=== PATIENT | male | born 1975 | race Caucasian/White ===

== ENCOUNTER 2017-03-20 11:58 | Emergency (ER) | payer SELFPAY | END 2017-03-20 18:11 | disposition left against medical advice (07) | LOC: UCEAST 11:58 | DX: T14.8 Other injury of unspecified body region (principal); X58.XXXA Exposure to other specified factors, initial encounter; Y93.9 Activity, unspecified; Y92.9 Unspecified place or not applicable; Y99.9 Unspecified external cause status; Z53.21 Procedure and treatment not carried out due to patient leaving prior to being seen by health care provider ==

== ENCOUNTER 2017-04-14 09:51 | Emergency (ER) | payer SELFPAY ==
[2017-04-14] MEDS ORDERED: HYDROcodone/ACETAMIN 5-325 MG* 1 TAB PO ONE (10:50)
[2017-04-14 11:23] VITALS: BP 141/79
== END 2017-04-14 11:24 | disposition short-term general hospital (02) ==
LOC: UCEAST 09:51
DX: M54.5 Low back pain (principal); R30.0 Dysuria; L98.9 Disorder of the skin and subcutaneous tissue, unspecified; J18.9 Pneumonia, unspecified organism; F31.9 Bipolar disorder, unspecified; Z90.5 Acquired absence of kidney; Z88.8 Allergy status to other drugs, medicaments and biological substances; Z91.030 Bee allergy status; F17.210 Nicotine dependence, cigarettes, uncomplicated
CPT/HCPCS: 81003; 87077; 87086; 87186; 99212; G0463

== ENCOUNTER 2017-07-02 10:51 | Emergency (ER) | payer SELFPAY ==
[2017-07-02 11:30] VITALS: BP 108/78
--- NOTE | 2017-07-02 11:34 | UC ---
Lower Extremity/Ankle HPI - HPI Summary HPI Summary: 2 days of pain redness and swelling on top of right foot, hurts to weight bear - History of Current Complaint Chief Complaint: UCSkin Stated Complaint: FOOT PAIN Time Seen by Provider: 07/02/17 11:10 Hx Obtained From: Patient Onset/Duration: Sudden Onset, Lasting Days - 2, Still Present Severity Initially: Moderate Severity Currently: Moderate Pain Intensity: 9 Aggravating Factor(s): Standing, Ambulation Alleviating Factor(s): Rest, Elevation, Other - heat Able to Bear Weight: Yes - with pain - Allergies/Home Medications Allergies/Adverse Reactions: Allergies Allergy/AdvReac Type Severity Reaction Status Date / Time Bee Venom Allergy Severe Anaphylatic Verified 07/02/17 11:04 Shock Phenytoin [From Dilantin] Allergy Severe Anaphylatic Verified 07/02/17 11:04 Shock Home Medications: Home Medications Ibuprofen TAB* [Motrin TAB* 600 MG] 07/02/17 [History] PMH/Surg Hx/FS Hx/Imm Hx Previously Healthy: No - 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 september 2013 - double pneumonia with 2 bronchoscopy. chest tube. I and D right wrist june 2014. - Family History Known Family History: Positive: None, Other - Parkinsons, depression, alcohol abuse - Social History Occupation: Unemployed Lives: With Family Alcohol Use: None Alcohol Amount: none in years Substance Use Type: Heroin Substance Use Comment - Amount & Last Used: clean for 9 months per pt Smoking Status (MU): Light Every Day Tobacco Smoker Type: Cigarettes Amount Used/How Often: 1/2 ppd Length of Time of Smoking/Using Tobacco: 20 YEARS Have You Smoked in the Last Year: Yes - Immunization History Most Recent Influenza Vaccination: 10/05 Most Recent Tetanus Shot: UNK Most Recent Pneumonia Vaccination: UNK BUT STATES HAS BEEN VACCINATED IN THE PAST Review of Systems Constitutional: Negative Skin: Other - erythema and pain right foot Eyes: Negative ENT: Negative Respiratory: Negative Cardiovascular: Negative Gastrointestinal: Negative Genitourinary: Negative Motor: Negative Neurovascular: Negative Musculoskeletal: Arthralgia - right foot Neurological: Negative Psychological: Negative All Other Systems Reviewed And Are Negative: Yes Physical Exam Triage Information Reviewed: Yes Appearance: Well-Nourished, Ill-Appearing - appears older than stated age, Pain Distress Vital Signs: Initial Vital Signs Temp 98 F 07/02/17 11:06 Pulse 61 07/02/17 11:06 Resp 16 07/02/17 11:06 BP 108/78 07/02/17 11:06 Pulse Ox 99 07/02/17 11:06 Vital Signs Reviewed: Yes Eye Exam: Normal Eyes: Positive: Conjunctiva Clear ENT Exam: Normal ENT: Positive: Normal ENT inspection, Hearing grossly normal, TMs normal. Negative: Nasal congestion, Nasal drainage, Trismus, Muffled/hoarse voice Dental Exam: Normal Neck exam: Normal Neck: Positive: Supple, Nontender, No Lymphadenopathy Respiratory Exam: Normal Respiratory: Positive: Chest non-tender, No respiratory distress, No accessory muscle use Cardiovascular Exam: Normal Cardiovascular: Positive: RRR, No Murmur, Pulses Normal, Brisk Capillary Refill Musculoskeletal Exam: Normal Musculoskeletal: Positive: Strength Intact, ROM Intact, Other: - 12x5 cm erythema 1x2 cm erythema with induration Neurological Exam: Normal Neurological: Positive: Alert, Muscle Tone Normal Psychological Exam: Normal Psychological: Positive: Normal Response To Family, Age Appropriate Behavior Skin Exam: Normal Skin: Positive: Other - no open area, no fluctulant mass, no tenting Diagnostics - Radiology No standard instances Xray Interpretation: No Acute Changes Radiology Interpretation Completed By: Radiologist Re-Evaluation - Re-Evaluation First Eval Change: Improved - reports good pain relief Lower Extremity Course/Dx - Course Course Of Treatment: heat elevation, antibiodic, return for fluctulant mass, increase pain erythema, streakingsmoking cesation support, follow with pcp - Differential Dx/Diagnosis Differential Diagnosis/HQI/PQRI: Cellulitis, Fracture (Closed), Infection, Sprain, Strain Provider Diagnoses: Abscess with cellulitis right foot, nicotine dependent Discharge - Discharge Plan Condition: Stable Disposition: HOME Prescriptions: Hydrocodone-Acetaminophen [Hydrocodone/Acetaminophen 5-325 mg] 1 tab PO Q6H PRN #6 tab MDD 4 PRN Reason: Pain Sulfamethox/Trimethoprim DS* [Bactrim DS 800/160 TAB*] 1 tab PO BID #19 tab Patient Education Materials: Abscess (ED), Warm Compress or Soak (ED) Referrals: Eliud Wylie MD [Primary Care Provider] - 3 Days
[2017-07-02] MEDS ORDERED: HYDROcodone/ACETAMIN 5-325 MG* 1 TAB PO ONE (11:37)
[2017-07-02] MEDS ORDERED: Sulfamethox/Trimethoprim DS 800/160* TAB PO ONE (11:37)
[2017-07-02] MEDS ORDERED: Ketorolac INJ* 60 MG/2 ML VIAL IM ONE (11:37)
--- NOTE | 2017-07-02 12:11 | RAD ---
Indication: RIGHT foot redness, swelling, pain since yesterday morning. Dorsal aspect near first metatarsal. Uncertain of specific injury mechanism. Comparison: No relevant prior exams available on the [facility] for comparison. Technique: AP, lateral, and oblique views RIGHT foot. REPORT AND IMPRESSION: Soft tissue swelling most prominent over the dorsum of the forefoot. No conspicuous foreign body. Negative for fracture or malalignment.
== END 2017-07-02 12:53 | disposition home or self-care (01) ==
LOC: UCEAST 10:51
DX: L02.611 Cutaneous abscess of right foot (principal); L03.115 Cellulitis of right lower limb; Z91.030 Bee allergy status; Z90.5 Acquired absence of kidney; F17.210 Nicotine dependence, cigarettes, uncomplicated
CPT/HCPCS: 99213; A9270-GY; G0463; J1885

== ENCOUNTER 2017-07-05 10:36 | Emergency (ER) | payer SELFPAY ==
[2017-07-05 10:46] VITALS: BP 134/79
[2017-07-05] MEDS ORDERED: Ketorolac INJ* 60 MG/2 ML VIAL IM ONE (11:24)
[2017-07-05] MEDS ORDERED: Lidocaine 2% PF * 5 ML VIAL INJ ONE ×2 (11:24→11:25)
--- NOTE | 2017-07-05 12:43 | UC ---
Skin Complaint HPI - HPI Summary HPI Summary: RIGHT FOOT CELLULITIS, SEEN HERE ON 07/02/17, PUT ON BACTRIM. CENTRAL AREA HAS FORMED AN ABCESS AND CELLULITIC AREA IS SPREADING. 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 Negative : Nausea, Fever, Chills, Hoarseness, Throat Tightening, Drainage - Allergy/Home Medications Allergies/Adverse Reactions: Allergies Allergy/AdvReac Type Severity Reaction Status Date / Time Bee Venom Allergy Severe Anaphylatic Verified 07/05/17 10:46 Shock Phenytoin [From Dilantin] Allergy Severe Anaphylatic Verified 07/05/17 10:46 Shock Home Medications: Home Medications Ibuprofen TAB* [Motrin TAB* 600 MG] 600 mg PO Q6H PRN 07/05/17 [History Confirmed 07/05/17] Sulfamethox/Trimethoprim DS* [Bactrim DS 800/160 TAB*] 1 tab PO BID 07/05/17 [ History Confirmed 07/05/17] Review of Systems Constitutional: Negative Skin: Other - ABSCESS/CELLULITIS RIGHT FOOT Eyes: Negative ENT: Negative Respiratory: Negative Cardiovascular: Negative Gastrointestinal: Negative Genitourinary: Negative Motor: Negative Neurovascular: Negative Musculoskeletal: Negative Neurological: Negative Psychological: Negative All Other Systems Reviewed And Are Negative: Yes PMH/Surg Hx/FS Hx/Imm Hx Previously Healthy: Yes Other History Of: Negative For: Anticoagulant Therapy - Surgical History Surgical History: Yes Surgery Procedure, Year, and Place: left kidney removed 1985. september 2013 - double pneumonia with 2 bronchoscopy. chest tube. I and D right wrist june 2014. - Family History Known Family History: Positive: None, Other - Parkinsons, depression, alcohol abuse - Social History Occupation: Employed Full-time Lives: With Family Alcohol Use: None Alcohol Amount: none in years Substance Use Type: Heroin Substance Use Comment - Amount & Last Used: clean for 9 months per pt Smoking Status (MU): Heavy Every Day Tobacco Smoker Type: Cigarettes Amount Used/How Often: 1/2 ppd Length of Time of Smoking/Using Tobacco: 20 YEARS Have You Smoked in the Last Year: Yes Cessation Counseling: Patient Advised to Stop - Immunization History Most Recent Influenza Vaccination: 10/05 Most Recent Tetanus Shot: UNK Most Recent Pneumonia Vaccination: UNK BUT STATES HAS BEEN VACCINATED IN THE PAST Physical Exam Triage Information Reviewed: Yes Appearance: Well-Appearing, No Pain Distress, Well-Nourished Vital Signs: Initial Vital Signs Temp 98.5 F 07/05/17 10:40 Pulse 76 07/05/17 10:40 Resp 16 07/05/17 10:40 BP 134/79 07/05/17 10:40 Pulse Ox 100 07/05/17 10:40 Vital Signs Reviewed: Yes Eye Exam: Normal ENT Exam: Normal ENT: Positive: Normal ENT inspection, TMs normal Dental Exam: Normal Neck exam: Normal Neck: Positive: Supple, Nontender, No Lymphadenopathy Respiratory Exam: Normal Respiratory: Positive: Chest non-tender, Lungs clear, Normal breath sounds, No respiratory distress, No accessory muscle use Cardiovascular Exam: Normal Cardiovascular: Positive: RRR, No Murmur, Pulses Normal Abdominal Exam: Normal Musculoskeletal Exam: Normal Musculoskeletal: Positive: Strength Intact, ROM Intact, No Edema Neurological Exam: Normal Psychological Exam: Normal Psychological: Positive: Normal Response To Family Skin: Positive: Other - MACULAR ERYTHEMA ON DORSAL RIGHT FOOT, SPREAD BEYOND SKIN PEN SESAY FROM 07/02/17. 2CM X 2CM FLUCTUANT ANDCESS IN CENTER WITHOUT DRAINAGE. - Additional Comments INCISION AND DRAINAGE OF RIGHT FOOT DORSAL ABSCESS. USING FIELD BLOCK OF 2% LIDOCAINE. #11 BLADE USED TO MAKE INCISION INTO ABSCESS. DISCHARGE EXPRESSED AND CULTURE OBTAINED. PATIENT TOLERATED PROCEDURE WELL. Course/Dx - Differential Diagnoses - Skin Complaint Differential Diagnoses: Abscess, Cellulitis, Contact Dermatitis, Impetigo, MRSA - Diagnoses Provider Diagnoses: RIGHT FOOT ABSCESS INCISION AND DRAINAGE; RIGHT FOOT CELLULITIS Discharge - Discharge Plan Condition: Stable Disposition: HOME Prescriptions: Cephalexin CAP* [Keflex CAP*] 500 mg PO TID #30 cap Hydrocodone-Acetaminophen [[place] 5-325 mg] 1 tab PO TID PRN #9 tab MDD three tabs PRN Reason: Pain Patient Education Materials: Cellulitis (ED), Abscess (ED) Referrals: Eliud Wylie MD [Primary Care Provider] - As Soon As Possible Images Feet (Multiple View): 1 - MACULAR ERYTHEMA ON DORSAL RIGHT FOOT, SPREAD BEYOND SKIN PEN SESAY FROM 09/08. 2CM X 2CM FLUCTUANT ANDCESS IN CENTER WITHOUT DRAINAGE.
--- NOTE | 2017-07-07 18:55 | ED ---
Course/Dx - Course Course Of Treatment: CALL PATIENT;. WOUND POSITIVE MRSA; CONTINUE THE BACTRIM AND CEPHALEXIN AND F/U PMD. - Diagnoses Provider Diagnoses: MRSA cellulitis of right foot
== END 2017-07-05 12:26 | disposition home or self-care (01) ==
LOC: UCEAST 10:36
DX: L02.611 Cutaneous abscess of right foot (principal); L03.115 Cellulitis of right lower limb; Z91.030 Bee allergy status; Z90.5 Acquired absence of kidney; F11.90 Opioid use, unspecified, uncomplicated; F17.210 Nicotine dependence, cigarettes, uncomplicated
CPT/HCPCS: 10060; 87070; 87077; 87186; 87205; 87640; 87641; 96372; 99212; G0463; J1885